=== PATIENT | female | born 1995 | race Hispanic/Latino ===

== ENCOUNTER 2019-08-12 19:29 | Emergency (ER) | payer OTHER ==
[2019-08-13 11:59] LABS: SARS-CoV-2 MS2 Positive; SARS-CoV-2 N Gene Negative; SARS-CoV-2 S Gene Negative; SARS-CoV-2 orf1ab Negative
== END 2019-08-12 20:15 | disposition home or self-care (01) ==
LOC: ERS 19:29
DX: J02.9 Acute pharyngitis, unspecified (principal); Z20.828 Contact with and (suspected) exposure to other viral communicable diseases
CPT/HCPCS: 87635; 99283; U0003

== ENCOUNTER 2019-11-04 13:50 | Inpatient (IN) | payer OTHER ==
[2019-11-04] MEDS ORDERED: hydrALAZINE 20 MG/ML VIAL SLOW IVP PRN (14:36)
[2019-11-04 15:02] LABS: #Eosinphils 0.1 thou/uL (0.0-0.7); #Lymphocytes 1.1 thou/uL (1.20-3.40); #Monocytes 0.4 thou/uL (0.11-0.59); #Neutrophils 7.5 thou/uL (1.40-6.50); %Basophils 0.1 % (0.0-1.0); %Eosinophils 0.6 % (0.0-10.0); %Lymphocytes 12.5 % (21.0-51.0); %Monocytes 3.8 % (0.0-10.0); %Neutrophils 82.9 % (42.0-75.0); Hemoglobin 10.1 g/dL (12.0-16.0); Mean Corpuscular HGB CONC 33.7 g/dL (32.0-36.0); Mean Corpuscular Hemoglobin 28.5 pg (27.0-31.0); Mean Corpuscular Volume 84.4 fL (78.0-98.0); Platelet Count 162 thou/uL (130-400); RBC Distribution Width 13.3 % (11.5-14.5); Red Blood Cell (RBC) Count 3.55 mill/uL (4.20-5.40)
--- NOTE | 2019-11-04 15:12 | PDOC.FPROB ---
FMR OB H&P: HPI - History of Present Illness Chief Complaint: Elevated Blood Pressure History of Present Illness: Pt is a 24 yo @ 39.4 wks by LMP c/w 15.4 wk US (ALE: 11/06/2019) who has a hx of anemia and GERD in who presents from [facility] after she was found to have 2+ protein on dip stick and elevated blood pressure with a systolic of 143. She says she was supposed to have a phone visit; however, she wanted to come in and see how dilated she was. They checked her and found her to be 2/50/- 1 with anterior soft cervix. She says she would like to wait till she is induced , but she she just wants to do whatever is best for the baby. She denies any headache, vision changes, loss of fluid, or vaginal bleeding. She says baby has been moving around well and she has some swelling in her feet, but it resolves with elevation. [facility] H&P: Current - Care : 2 Para: 1001 Gestational age: 39.4 wks Due date: 11/06/2019 Dating Criteria: LMP c/w 15.4 wk US - OB Labs Blood type: A RH: positive Antibody Screen: negative HIV: negative RPR: negative HepBsAg: negative Rubella: immune Gonorrhea: negative Chlamydia: negative Pap Smear: 05/27/2019 NILM 3 hour GTT: 2H F: 84, 1H: 116, 2H: 75 A1c: 5.5% GBS: negative H&H: 9.9/29.0 Platelets: 227 Additional labs: Hep C: neg, TSH: 0.257 FMR OB H&P: History - Past Medical History PMH: Obesity - OB History OB History: Hx of Chlamydia with treatment x2 & MANNY: 07/21 & 08/16, Obesity, Low TSH, GERD, Yeast Vaginitis treated, 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 - Family History Family History: Mother: DM Last baby did not need lights. FMR OB H&P: Medications - Current Home Medications: Medication Instructions Recorded Confirmed Type Esomeprazole Magnesium [NexIUM] 20 mg PO DAILY 12/21/15 12/22/15 History Comb No.42/Folic Acid 1 tablet PO DAILY 12/21/15 12/22/15 History [Prena1 Chewable Tablet] Allergies/Adverse Reactions: Allergies Allergy/AdvReac Type Severity Reaction Status Date / Time No Known Allergies Allergy Verified 12/22/15 22:56 FMR OB H&P: ROS - Review of Systems General: denies: fever/chills Eyes: denies: vision changes ENT: denies: nasal congestion, sore throat Cardiovascular: reports: edema. denies: chest pain Respiratory: denies: shortness of breath Gastrointestinal: denies: abdominal pain, nausea, vomiting Genitourinary (Female): denies: vaginal discharge, vaginal bleeding Musculoskeletal: denies: pain, arthritis/arthralgias Neurologic: denies: numbness, weakness Integumentary: denies: rash FMR OB H&P: Vital Signs - Maternal Vital signs: HR: 84-106 BP: 121/77 T: 97.7 - Heart Tones Baseline: 140 Variability: moderate Acceleration: present Deceleration: absent Category: category 1 [place] contractions every: very spaced out FMR OB H&P: Physical Exam - Physical Exam General: NAD, awake, alert and oriented HEENT: normocephalic and atraumatic, EOMI, conjunctiva clear Heart: RRR, normal S1/S2, no murmurs/rubs/gallops, pulses present, no edema General: CTAB, no respiratory distress, good air movement, no rales/rhonchi, no wheezing, no retractions Abdomen: soft, gravid, non-tender, bowel sound present Musculoskeletal: pulses present, FROM in all four extremities Neurological: sensation to pain,touch and proprioception grossly normal, no focal deficit Skin: no rash Lymphatic: no unusual bruising or bleeding, no purpura, no petechia FMR OB H&P: Results - Labs Lab results: Laboratory Results - last 24 hr 11/04/19 14:54 WBC 9.0 RBC 3.55 L Hgb 10.1 L Hct 30.0 L MCV 84.4 MCH 28.5 MCHC 33.7 RDW 13.3 Plt Count 162 MPV 11.0 H Neutrophils % 82.9 H Lymphocytes % 12.5 L Monocytes % 3.8 Eosinophils % 0.6 Basophils % 0.1 Neutrophils # 7.5 H Lymphocytes # 1.1 L Monocytes # 0.4 Eosinophils # 0.1 Basophils # 0.0 FMR OB H&P: A/P - Problem List (1) Elevated blood pressure affecting in third trimester, antepartum Current Visit: Yes Status: Acute Code(s): O16.3 - UNSPECIFIED MATERNAL HYPERTENSION, THIRD TRIMESTER (2) Proteinuria affecting in third trimester Current Visit: Yes Status: Acute Code(s): O12.13 - GESTATIONAL PROTEINURIA, THIRD TRIMESTER (3) Current Visit: Yes Status: Acute Qualifiers: Weeks of gestation: 39 weeks Qualified Code(s): Z3A.39 - 39 weeks gestation of (4) History of chlamydia infection Current Visit: Yes Status: Acute Code(s): Z86.19 - PERSONAL HISTORY OF OTHER INFECTIOUS AND PARASITIC DISEASES (5) Obesity Current Visit: Yes Status: Acute Code(s): E66.9 - OBESITY, UNSPECIFIED (6) GERD (gastroesophageal reflux disease) Current Visit: Yes Status: Acute Code(s): K21.9 - GASTRO-ESOPHAGEAL REFLUX DISEASE WITHOUT ESOPHAGITIS (7) Low TSH level Current Visit: Yes Status: Acute Code(s): R79.89 - OTHER SPECIFIED ABNORMAL FINDINGS OF BLOOD CHEMISTRY (8) Anemia affecting Current Visit: Yes Status: Acute Code(s): O99.019 - ANEMIA COMPLICATING , UNSPECIFIED TRIMESTER Disposition: Pt is a 24 yo @ 39.4 wks by LMP c/w 15.4 wk US (ALE: 11/06/2019) who presents for Pre-Eclampsia rule out due to elevated bp and proteinuria. 1. Pre-Eclampsia Rule-Out 2/2 Elevated blood pressure & Proteinuria sBP: 143, Protein: 2+ -Checking CBC, CMP, Urine Pro/Cre Ratio -Serial Blood Pressures - Monitoring 2. sIUP ALE: 11/06/2019 -GBS: Negative -PNC on 11/03 check /-1, soft & anterior 3.Hx of Chlamydia -Treatment x2 -MANNY: 07/21 & 08/16 4. Obesity -Glucose Tolerance test was normal 5. Low TSH TSH: 0.257 -Low in previous 6. GERD -Currently taking Famotidine 7. Yeast Vaginitis -Treated 8. Anemia of H&H: 9.9/29.0 -Currently taking FeSu 325 mg Dispo: Just got results back CBC & CMP were normal, but Urine Protein/ Creatinine 0.4 g and she had a sbp of 153. We will admit and induce for Pre-E without severe features. Discussion: Date/Time: 11/04/19 3075 This H&P was discussed with [] and [] who agree with the above documentation and plan.
[2019-11-04 15:26] LABS: ALT (SGPT) 7 U/L (8-55); AST (SGOT) 12 U/L (5-34); Albumin 3.3 g/dL (3.5-5.0); Alkaline Phosphatase 153 U/L (40-110); Anion Gap 13 mmol/L (10-20); BUN (Urea Nitrogen) 10 mg/dL (7.0-18.7); Bilirubin, Total 0.4 mg/dL (0.2-1.2); Calc. Creatinine Clearance 0 mL/min (70-130); Calcium 8.4 mg/dL (7.8-10.44); Carbon Dioxide 19 mmol/L (22-29); Chloride 106 mmol/L (98-107); Estimated GFR-MDRD Greater than 90; Globulin 3.2 g/dL (2.4-3.5); Glucose 104 mg/dL (70-105); Protein, Total 6.5 g/dL (6.0-8.3); Sodium 134 mmol/L (136-145)
[2019-11-04 17:24] LABS: Creatinine, Urine 170.48 mg/dL (47-110)
[2019-11-04] MEDS ORDERED: Butorphanol Tartrate 1 MG/ML VIAL SLOW IVP PRN (17:38)
[2019-11-04] MEDS ORDERED: Ibuprofen 800 MG TAB PO PRN (17:38)
[2019-11-04] MEDS ORDERED: Carboprost 250 MCG/ML AMP IM PRN (17:38)
[2019-11-04] MEDS ORDERED: Ondansetron PF 4 MG/2 ML Vial IVP PRN (17:38)
[2019-11-04] MEDS ORDERED: Acetaminophen 500 MG TAB PO PRN (17:38)
[2019-11-04] MEDS ORDERED: Lidocaine 1% (PF) 30 ML VIAL SC PRN (17:38)
[2019-11-04] MEDS ORDERED: Docusate 100 MG CAP PO PRN (17:38)
[2019-11-04] MEDS ORDERED: Methylergonovine 0.2 MG/ML VIAL IM PRN (17:38)
[2019-11-04] MEDS ORDERED: Promethazine HCl 25 MG/ML VIAL IM PRN (17:38)
[2019-11-04] MEDS ORDERED: Misoprostol 200 MCG TAB PR PRN (17:38)
[2019-11-04] MEDS ORDERED: NS w/ Oxytocin 10 units 500 ML IV SCH (17:45)
[2019-11-04 18:48] VITALS: BMI 35.4
--- NOTE | 2019-11-04 19:24 | PDOC.OBLPN ---
FMR OB Labor PN: Subj - Interval History Hospital Day: 1 Chief Complaint: mIOL Interval History: Not feeling ctx, elevated BP, no AGRAWAL, vision changes, abd pain , or swelling FMR OB Labor PN: Obj - Maternal Vital signs: BP 153/83 FMR OB Labor PN: Exam - Physical Exam General: NAD, awake, alert and oriented HEENT: grossly normal vision, grossly normal hearing General: no respiratory distress Abdomen: soft, gravid Musculoskeletal: pulses present Neurological: no clonus Deviation from normal: no active lesions, scarring suggestive of hidradenitis Psychiatric: intact recent and remote memory, good judgement and insight, normal mood and affect - Pelvic Exam Vulva: no lesions, no discharge, no blood SVE: /-2 [place] score: 7 Membranes: intact Presentation: cephalic FMR OB Labor PN: Data - Labs Lab results: Laboratory Results - last 24 hr 11/04/19 11/04/19 11/04/19 14:54 14:54 15:30 WBC 9.0 RBC 3.55 L Hgb 10.1 L Hct 30.0 L MCV 84.4 MCH 28.5 MCHC 33.7 RDW 13.3 Plt Count 162 MPV 11.0 H Neutrophils % 82.9 H Lymphocytes % 12.5 L Monocytes % 3.8 Eosinophils % 0.6 Basophils % 0.1 Neutrophils # 7.5 H Lymphocytes # 1.1 L Monocytes # 0.4 Eosinophils # 0.1 Basophils # 0.0 Sodium 134 L Potassium 4.0 Chloride 106 Carbon Dioxide 19 L Anion Gap 13 BUN 10 Creatinine 0.67 Estimated GFR (MDRD) Greater than 90 Glucose 104 Calcium 8.4 Total Bilirubin 0.4 AST 12 ALT 7 L Alkaline Phosphatase 153 H Serum Total Protein 6.5 Albumin 3.3 L Globulin 3.2 Albumin/Globulin Ratio 1.0 L U Random Total Protein 64 H Urine Creatinine 170.48 H - Imaging Imaging: Bedside sono confirmed cephalic presentation FMR OB Labor PN: A/P Disposition: mIOL Induced for pre-eclampsia without severe features. - SVE /-2/mid/soft @ 1715 - [place] 7 - Will start pitocin - Recheck in 4 hours or sooner if clinical changes Pre-eclampsia without severe features - continue BP monitoring and watch for development of severe features - PRN hydralazine Possible hidradenitis suppurativa - No active lesions on exam today - chlorhexidine prep with each cervical check Discussion: Date/Time: 11/04/191922 This H&P was discussed with Dr. Baca and Dr. Faulkner who agree with the above documentation and plan. Addendum - Attending - Attending Attestation Date/Time: 11/04/192114 I personally evaluated the patient and discussed the management with Dr. Turcios I agree with the History, Examination, Assessment and Plan documented above with any addition or exceptions noted below. 3 cm/70/-2, soft, anterior. Induction options discussed. Questions answered. Patient would like to start pitocin. FHR reactive. No decels. No contractions. GBS negative. COVID swab pending. ABrayMD
[2019-11-04 19:48] LABS: HBSAg Index 0.14 S/CO (0-0.99); Hep B Surf Ag Non-Reactive S/CO (NonReactive); Syphilis Antibody Nonreactive (Nonreactive); Syphilis Antibody Index 0.03 S/CO (<1.00 Non-Reactive)
[2019-11-04] MEDS: NS w/ Oxytocin 10 units 500 ML IV SCH (19:55)
[2019-11-04] MEDS: Misoprostol 100 MCG TAB VAG SCH (21:01)
[2019-11-04] MEDS: Lactated Ringer's 1,000 ML IV SCH (22:00)
--- NOTE | 2019-11-04 22:43 | PDOC.BPN ---
- Brief Progress Note Encounter Date: 11/04/19 Encounter Time: 22:30 Called nurse to discuss strip review. Pitocin recently increased from 6 to 8. Patient feeling some ctx, occurring q3-6min. Category I strip at this time; some minimal variability earlier and pitocin was kept at 6 instead of increasing for approximately 1 hour.
--- NOTE | 2019-11-05 | PDOC.OBLPN ---
FMR OB Labor PN: Subj - Interval History Hospital Day: 1 Chief Complaint: mIOL Interval History: feeling some ctx, no AGRAWAL, vision changes, abd pain, edema FMR OB Labor PN: Obj - Maternal Vital signs: BP 180/91, repeat 149/100 FMR OB Labor PN: Exam - Physical Exam General: NAD, awake, alert and oriented HEENT: grossly normal vision, grossly normal hearing Heart: no edema General: no respiratory distress Abdomen: gravid Psychiatric: intact recent and remote memory, good judgement and insight, normal mood and affect - Pelvic Exam SVE: /-1 Membranes: intact Presentation: cephalic FMR OB Labor PN: Data - Labs Lab results: Laboratory Results - last 24 hr 11/04/19 11/04/19 11/04/19 14:54 14:54 15:30 WBC 9.0 RBC 3.55 L Hgb 10.1 L Hct 30.0 L MCV 84.4 MCH 28.5 MCHC 33.7 RDW 13.3 Plt Count 162 MPV 11.0 H Neutrophils % 82.9 H Lymphocytes % 12.5 L Monocytes % 3.8 Eosinophils % 0.6 Basophils % 0.1 Neutrophils # 7.5 H Lymphocytes # 1.1 L Monocytes # 0.4 Eosinophils # 0.1 Basophils # 0.0 Sodium 134 L Potassium 4.0 Chloride 106 Carbon Dioxide 19 L Anion Gap 13 BUN 10 Creatinine 0.67 Estimated GFR (MDRD) Greater than 90 Glucose 104 Calcium 8.4 Total Bilirubin 0.4 AST 12 ALT 7 L Alkaline Phosphatase 153 H Serum Total Protein 6.5 Albumin 3.3 L Globulin 3.2 Albumin/Globulin Ratio 1.0 L U Random Total Protein 64 H Urine Creatinine 170.48 H Syphilis IgG/IgM Ab Hep Bs Antigen Blood Type Antibody Screen 11/04/19 11/04/19 11/04/19 18:40 18:40 18:40 WBC RBC Hgb Hct MCV MCH MCHC RDW Plt Count MPV Neutrophils % Lymphocytes % Monocytes % Eosinophils % Basophils % Neutrophils # Lymphocytes # Monocytes # Eosinophils # Basophils # Sodium Potassium Chloride Carbon Dioxide Anion Gap BUN Creatinine Estimated GFR (MDRD) Glucose Calcium Total Bilirubin AST ALT Alkaline Phosphatase Serum Total Protein Albumin Globulin Albumin/Globulin Ratio U Random Total Protein Urine Creatinine Syphilis IgG/IgM Ab Nonreactive Hep Bs Antigen Non-Reactive Blood Type A POSITIVE Antibody Screen NEGATIVE FMR OB Labor PN: A/P Disposition: mIOL Induced for pre-eclampsia without severe features. - on pitocin - SVE 2344 380/-1 - Recheck in 4 hours or sooner if clinical changes Pre-eclampsia without severe features - pressures >160/100 noted - started on Mg - given PRN hydralazine and pressures improved - continue with PRN hydralazine Possible hidradenitis suppurativa - No active lesions on exam today - chlorhexidine prep with each cervical check Discussion: Date/Time: 11/04/192358 This H&P was discussed with Dr. Baca and Dr. Faulkner who agree with the above documentation and plan. Addendum - Attending - Attending Attestation Date/Time: 11/04/192349 I personally evaluated the patient and discussed the management with Dr. Turcios and Dr. Baca I agree with the History, Examination, Assessment and Plan documented above with any addition or exceptions noted below. Now with 2 severe BP. Remains asymptomatic. Treat BP and start mag. Now preE with severe features. Monitor closely. Gina
[2019-11-05] MEDS ORDERED: Calcium Gluc 4.6 MEQ/10 ML (100 MG/ML) SLOW IVP PRN (00:03)
[2019-11-05] MEDS ORDERED: Magnesium Sulfate 20 GM/WATER 500 ML BAG IVPB SCH (00:15)
[2019-11-05] MEDS: Magnesium Sulfate 20 gm/500 ml 20 GM/500 ML BAG IVPB SCH ×3 (00:18→18:24)
[2019-11-05] MEDS: Misoprostol 100 MCG TAB VAG SCH (02:16)
--- NOTE | 2019-11-05 03:20 | PDOC.LDPN ---
Labor & Delivery Progress Note - Subjective Subjective: comfortable, no concerns - Objective Vital signs reviewed and normal: yes General: NAD, resting SVE: -: mIOL Induced for pre-eclampsia without severe features. - @ 0315 - pitocin increased from 10 to 12 - requests epidural at this time - plan to AROM after epidural placed Pre-eclampsia without severe features - no severe range pressures since starting Mg; one elevated pressure immediately following cervical check - PRN hydralazine for > 160/110 - urine output >30 cc/h - denies AGRAWAL, vision changes, CP, palpitations, abd pain, edema, SOB - reflexes 3+ Possible hidradenitis suppurativa - No active lesions on exam today - chlorhexidine prep with each cervical check Addendum - Attending - Attending Attestation Date/Time: 11/05/19 2037 I personally evaluated the patient and discussed the management with Dr. Turcios I agree with the History, Examination, Assessment and Plan documented above with any addition or exceptions noted below. Largely unchanged. However, contractions now more painful. Requesting epidural. Continue pitocin per protocol. AROM after epidural. Discussed with patient and agrees. Gina
[2019-11-05] MEDS ORDERED: Fentanyl 4 mcg/Bup 0.1% Cadd 100 ML ONE (03:50)
[2019-11-05] MEDS ORDERED: diphenhydrAMINE 50 MG/ML VIAL IVP PRN (04:44)
[2019-11-05] MEDS ORDERED: Naloxone HCl 0.4 mg/ml Vial IVP PRN ×2 (04:44)
[2019-11-05] MEDS ORDERED: EPHEDRINE 25 MG/5 ML SYRINGE SLOW IVP PRN (04:44)
[2019-11-05] MEDS ORDERED: Ondansetron PF 4 MG/2 ML Vial IVP PRN ×2 (04:44→21:28)
[2019-11-05] MEDS ORDERED: Promethazine HCl 25 MG/ML VIAL IM PRN ×2 (04:44→21:28)
[2019-11-05] MEDS ORDERED: Acetaminophen 325 MG TAB PO PRN (04:44)
[2019-11-05] MEDS ORDERED: Lactated Ringer's 500 ML IV PRN (04:44)
[2019-11-05] MEDS ORDERED: Fentanyl 4 mcg/Bupivacaine 0.1% Cassette 100 ML EPIDURAL SCH (04:45)
[2019-11-05] MEDS ORDERED: Communication Order-Pharmacy FS SCH (04:45)
--- NOTE | 2019-11-05 05:33 | PDOC.LDPN ---
Labor & Delivery Progress Note - Subjective Subjective: comfortable - Objective Vital signs reviewed and normal: yes General: NAD Uterine fundus: non tender SVE: 5/80/-1 FHT: category 1 AROM: clear fluid -: mIOL Induced for pre-eclampsia without severe features now with severe features. - AROM s/p epidural, clear fluid - SVE 5/80/-1 after AROM Pre-eclampsia with severe features - no additional severe range pressures - PRN hydralazine for > 160/110 - urine output >30 cc/h - denies AGRAWAL, vision changes, CP, palpitations, abd pain, edema, SOB - reflexes 2+ Possible hidradenitis suppurativa - No active lesions on exam today - chlorhexidine prep with each cervical check Addendum - Attending - Attending Attestation Date/Time: 11/05/19 1997 I personally evaluated the patient and discussed the management with Dr. Patricio I agree with the History, Examination, Assessment and Plan documented above with any addition or exceptions noted below. Now 5 cm and AROM'ed. Epidural in place and working well. Remains asymptomatic. No further severe range BP. No mag tox symptoms. ABrayMD
--- NOTE | 2019-11-05 07:29 | PDOC.LDPN ---
Labor & Delivery Progress Note - Subjective Subjective: comfortable, no concerns - Objective Vital signs reviewed and normal: yes General: NAD, resting Uterine fundus: non tender SVE: /.1 Dilation: 6 Effacement: 90% Station: -1 FHT: category 1 [place] contractions every: 3-4 min Plan: continue plan of care, pitocin for augmentation -: mIOL Induced for pre-eclampsia without severe features. - SVE /-1 - cat 1 tracing Pre-eclampsia without severe features - no additional severe range pressures - PRN hydralazine for > 160/110 - urine output >30 cc/h - denies AGRAWAL, vision changes, CP, palpitations, abd pain, edema, SOB - reflexes 2+ Possible hidradenitis suppurativa - No active lesions on exam today - chlorhexidine prep with each cervical check
--- NOTE | 2019-11-05 10:09 | PDOC.LDPN ---
Labor & Delivery Progress Note - Subjective Subjective: comfortable, vaginal pressure - Objective Vital signs reviewed and normal: yes General: NAD Uterine fundus: non tender SVE: 9/100/0 Dilation: 9 Effacement: 100% Station: 0 FHT: category 1 [place] contractions every: 3-4 min Plan: continue plan of care, pitocin for augmentation -: mIOL Induced for pre-eclampsia without severe features. - SVE 9/100/0 @ 9:50 - cat 1 tracing Pre-eclampsia without severe features - no additional severe range pressures - PRN hydralazine for > 160/110 - urine output >30 cc/h - denies AGRAWAL, vision changes, CP, palpitations, abd pain, edema, SOB - reflexes 2+ Possible hidradenitis suppurativa - No active lesions on exam today - chlorhexidine prep with each cervical check
[2019-11-05] MEDS ORDERED: Misoprostol 200 MCG TAB ONE (11:43)
[2019-11-05] MEDS ORDERED: Tranexamic Acid 1,000 MG/10 ML VIAL ONE (11:44)
[2019-11-05] MEDS: NS / Oxytocin 40 units/1000ml 1,000 ML IV PRN ×2 (11:56→17:11)
[2019-11-05] MEDS ORDERED: Tranexamic Acid 1,000 MG in Sodium Chloride 0.9% 250 ML 250 ML IVPB SCH (12:00)
[2019-11-05 12:30] LABS: SARS-CoV-2 MS2 Positive; SARS-CoV-2 N Gene Negative; SARS-CoV-2 S Gene Negative; SARS-CoV-2 by NAA Not Detected (NotDetected); SARS-CoV-2 orf1ab Negative
--- NOTE | 2019-11-05 12:46 | PDOC.OPDEL ---
OB Operative/Delivery Note Delivery Dr/Surgeon: Emelia/Darcie Assist: [email or web address] Pre-Delivery Diagnosis: medically indicated induction Procedure/Post Delivery Dx: spontaneous vaginal delivery Weeks gestation: 39 Anesthesia: epidural - Findings A Sex: female - 1 min: 8 - 5 min: 9 - Additional Findings/Plan Placenta delivered: spontaneous Repaired Obstetrical Laceration: 2nd degree Estimated blood loss: 315mL Compilations/Other Findings: Delivering Physician: Emelia Attending: Darcie Procedure: Spontaneous Vaginal Delivery Anesthesia: epidural, Local for Repair EBL: 315 ml Pre-op Diagnosis: 1. Term intrauterine in labor 2. Hx of preeclampsia with sever features, hx of chlamydia (TOCx2), hx of yeast vaginitis (treated), anemia of Post-op Diagnosis: 1. Term intrauterine , delivered 2. same as above Indications: A 24y/o female presents to L&D for induction due to pre- eclampsia. Delivery Note: This is 24yo F @ 39.4 wks who delivered a viable F at 11:27 on 11/04. Following an uneventful antepartum course, a vigorous female was delivered over an intact perineum in the occipitoanterior position. Anterior Shoulder and then remainder of the body delivered. No nuchal cord. The head was held down and mouth and nares were bulb suctioned. Cord clamped and cut and cord blood collected. Placenta delivered intact with a 3 vessel cord noted. Fundal massage was performed and brisk bleeding was noted. Patient received cytotec [place] and TXA. After additional massaging fundus was found to be firm. The cervix and vagina were inspected and a 2nd degree perineal laceration noted and repaired with 3-0 vicryl in the usual fashion with good approximation and hemostasis after a local anesthetic lidocaine was injected at site. Infant went to nursery in good condition for routine care. Apgars were 8/9 at 1 & 5 minutes, respectively. Patient tolerated delivery well and went to after routine recovery/care Post delivery plan: routine recovery (Mg for 24hours post delivery due to pre- eclampsia) Addendum - Attending - Attending Attestation Date/Time: 11/05/19 1342 I was present, assisted, and supervised the of a viable female infant over an intact perineum. Apgars 8/9. Placenta delivered spontaneously and intact. 3V cord. Small 2* perineal lac repaired with 3-0 vicryl in usual fashion. Good hemostasis. Mild uterine atony noted treated with bimanual massage, TXA and cytotec. [id number]. Residents: Emelia. Infant and mother in stable condition.
[2019-11-05] MEDS ORDERED: Misoprostol 200 MCG TAB PR PRN (14:00)
[2019-11-05] MEDS ORDERED: Misoprostol 200 MCG TAB PR SCH (14:00)
[2019-11-05] MEDS ORDERED: Misoprostol 100 MCG TAB PR SCH (14:00)
--- NOTE | 2019-11-05 15:43 | PDOC.BPN ---
- Brief Progress Note Encounter Date: 11/05/19 Encounter Time: 15:35 S: Patient doing well , received magnesium for Pre-E with severe range pressures. Tolerating magnesium and no acute events. No symptoms of mag toxicity noted. Denies fevers, chills, nausea, vomiting, SOB, CP, swelling or edema. O:BP 140s / 86-90 PE: Patient is alert and talkative. RRR, lungs clear to auscultation. No lower extremity edema noted bilaterally. DTR 2+ bilaterally. A/P: 1. : pre-E with severe range pressures - continue routine care, next mag check Q4 hr 7:35PM - monitor vital signs, monitor signs of mag toxicity - symptomatic management for pain control [place]ts, MS4 I, Kevin Malik - PGY1, agree with this assessment and plan.
--- NOTE | 2019-11-05 20:39 | PDOC.BPN ---
<Theresa Turcios - Last Filed: 11/05/19 20:22> - Brief Progress Note Encounter Date: 11/05/19 Encounter Time: 07:30 S: Reporting some blurry vision, improved with blinking a few times. No changes in visual acuity. No floaters. Has been wearing contacts for a prolonged period and thinks this may be related. Reports fatigue. No AGRAWAL, CP, palpitations, abdominal pain, edema. O: BP 160/64, repeat 154/72. Urine output 275, 45, 85 over the past 3 hours. Appears fatigued. Heart RRR, no murmurs. No abd tenderness. No edema on exam. Reflexes 2+, no clonus. A: Borderline blood pressure, low threshold for escalating treatment. P: Continue monitoring BP, UOP, sx closely. Tx for BP > 160/110. Consider lasix if UOP not improving to >200cc/hr. <Sofia Faulkner - Last Filed: 11/05/19 22:58> Addendum - Attending - Attending Attestation Date/Time: 11/05/192053 I personally evaluated the patient and discussed the management with Dr. Turcios I agree with the History, Examination, Assessment and Plan documented above with any addition or exceptions noted below. blurry vision likely related to contact lenses. Will continue to monitor closely. Borderline BPs. Diuresis decreasing. Need to make sure patient has at least diuresed over 4Ls today. Concern with increasing BP and decreasing UOP that possible continued dz state. Will continue mag as needed. Add lasix if not continuing to diuresis well. No s/sx of mag tox. Pitocin off so no antidiurectic effect. ABrayMD
[2019-11-05] MEDS ORDERED: hydrALAZINE 20 MG/ML VIAL SLOW IVP PRN (21:28)
[2019-11-05] MEDS ORDERED: Milk Of Magnesia 30 ML UDCUP PO PRN (21:28)
[2019-11-05] MEDS ORDERED: Bisacodyl 10 MG SUPP PR PRN (21:28)
[2019-11-05] MEDS ORDERED: Lanolin Ointment 7 GM TUBE TOP PRN (21:28)
[2019-11-05] MEDS ORDERED: NS / Oxytocin 40 units/1000ml 1,000 ML IV SCH (22:00)
[2019-11-05] MEDS ORDERED: Docusate Calcium (SURFAK) 240 MG CAP PO SCH (22:00)
[2019-11-05] MEDS ORDERED: Ferrous Sulfate 325 MG TAB PO SCH (22:00)
[2019-11-05] MEDS: Ibuprofen 800 MG TAB PO SCH (23:15)
[2019-11-05] MEDS ORDERED: Furosemide 20 MG/2 ML VIAL SLOW IVP SCH (23:59)
[2019-11-06] MEDS: Magnesium Sulfate 20 gm/500 ml 20 GM/500 ML BAG IVPB SCH (03:57)
--- NOTE | 2019-11-06 04:34 | PDOC.BPN ---
<Theresa Turcios - Last Filed: 11/06/19 04:31> - Brief Progress Note Encounter Date: 11/05/19 Encounter Time: 23:30 S: no AGRAWAL, vision changes, SOB, chest pain, abd pain, edema, palpitations O: resting comfortably, 2+ reflexes throughout, inadequate UOP (45-85 per hour) . no additional severe range pressures. A: decreased urine output 2/2 magnesium P: given 20 mg lasix to help diurese. continue magnesium. continue to monitor UOP and BP closely. <Sofia Faulkner - Last Filed: 11/06/19 05:21> - Brief Progress Note Decrease UOP no likely due to mag but pathology of preE. BP increased with decreasing UOP and possibly vision changes. Lasix added to assist with diuresis which has been effet -- 150, 200 per hour now. Consider repeat in 6 hours if needed to help continue diuresis. Gina
[2019-11-06] MEDS: Ibuprofen 800 MG TAB PO SCH ×3 (06:06→21:25)
--- NOTE | 2019-11-06 06:21 | PDOC.BPN ---
- Brief Progress Note Encounter Date: 11/06/19 Encounter Time: 03:30 S: Resting comfortably. Fatigue improved. No AGRAWAL, chest pain, SOB, palpitations, abd pain, edema. O: No elevated BP since last mag check. Reflexes 2+. UOP >100/hr. A: Improved UOP with lasix. BP wnl. P: Continue magnesium until 24 hr post-delivery, until 11:45 today. Continue to monitor BP. Continue q4hr mag checks, next due 07. Consider additional dose of lasix if increased UOP not maintained.
--- NOTE | 2019-11-06 06:44 | PDOC.PP ---
Post Progress Note Post Day #: 1 Subjective: Patient is doing well this morning. Baby has been feeding well. Pain is well managed with ibuprofen. Lochia is minimal and less than a period. She denies headache, SOB, or swelling. PO intake tolerated: yes Ambulation: yes Weight Weight 90.718 kg BPs 120s/80s BP 125/88, P 65, T 98.1 Urine output 463 - Physical Examination General: NAD Cardiovascular: no m/r/g, RRR Respiratory: clear to auscultation bilaterally, non-labored breathing Abdominal: + bowel sounds, lochia, no distention, appropriately TTP Fundus firm & at: midline, approximately 1in above umbilicus Extremities: negative homans (B) (2+ DTR bilaterally) Neurological: no gross focal deficits Psychiatric: A&Ox3, normal affect Result Diagrams: 11/04/19 14:54 11/04/19 14:54 Additional Labs: Post Labs Blood Type A POSITIVE 11/04/19 18:40 Hep Bs Antigen Non-Reactive S/CO (NonReactive) 11/04/19 18:40 - Assessment/Plan 24 yo G2 now P2 PPD 1 after . History of preeclampsia with severe features during labor and on magnesium. PPD 1 -appropriate pain, minimal lochia, and bonding well with baby Mg for preeclampsia -therapeutic level 5.2 -DTR 2+ bilaterally -UOP 463 -BPs 120s/80s -asymptomatic Continue magnesium until 24hrs post delivery which will be 11:30 on 11/05. Addendum - Attending - Attending Attestation Date/Time: 11/06/191938 I personally evaluated the patient and discussed the management with Dr. Malik I agree with the History, Examination, Assessment and Plan documented above with any addition or exceptions noted below - Patient without complaints. Afebrile VSS. A/P: 1) PPD#1 s/p - continue current care. 2) Pre- eclampsia with severe features- BP much improved; adequate urine output. Plan to d/c magnesium and transfer to .
[2019-11-06] MEDS: Lactated Ringer's 1,000 ML IV SCH ×3 (07:30→12:54)
[2019-11-06] MEDS ORDERED: Adacel (T-DAP) 0.5 ML SYRINGE IM ONE (09:00)
[2019-11-06] MEDS: Docusate Calcium (SURFAK) 240 MG CAP PO SCH ×2 (11:34→20:47)
[2019-11-06] MEDS: Prenatal Vitamin 1 TAB PO SCH (11:35)
[2019-11-06] MEDS: Misoprostol 100 MCG TAB VAG SCH ×2 (12:51→12:52)
[2019-11-06] MEDS: NS w/ Oxytocin 10 units 500 ML IV SCH (12:54)
[2019-11-07] MEDS: Ibuprofen 800 MG TAB PO SCH (05:30)
--- NOTE | 2019-11-07 06:38 | PDOC.PP ---
Post Progress Note Post Day #: 2 Subjective: Pati has no complaints this morning. Pain is appropriate, lochia is minimal. She is eating, voiding, and having flatus. She is and bonding with the baby. PO intake tolerated: yes Flatus: yes Ambulation: yes Vital Signs (12 hours) Temp Pulse Resp BP Pulse Ox 11/07/19 01:05 98.8 F 80 20 134/69 97 11/06/19 20:45 98.9 F 92 20 133/85 97 Weight Weight 90.718 kg - Physical Examination General: NAD Cardiovascular: no m/r/g, RRR Respiratory: clear to auscultation bilaterally, non-labored breathing Abdominal: + bowel sounds, lochia, no distention, appropriately TTP Neurological: no gross focal deficits Psychiatric: A&Ox3, normal affect Result Diagrams: 11/04/19 14:54 11/04/19 14:54 Additional Labs: Post Labs Blood Type A POSITIVE 11/04/19 18:40 Hep Bs Antigen Non-Reactive S/CO (NonReactive) 11/04/19 18:40 - Assessment/Plan 24 yo G2 now P2 PPD 2 after . History of preeclampsia with severe features during labor and received 24hours of magnesium post delivery. PPD 2 -appropriate pain, minimal lochia, and bonding well with baby Mg for preeclampsia -Received for 24hrs post delivery -BPs have been wnl -DTRs 2+ b/l -asymptomatic Discharge home today with baby. Will follow up with clinic in 2 weeks. Addendum - Attending - Attending Attestation Date/Time: 11/07/19 0736 I personally evaluated the patient and discussed the management with Dr. Malik I agree with the History, Examination, Assessment and Plan documented above with any addition or exceptions noted below - Patient without complaints. Ambulating/voiding. Afebrile VSS. A/P: 1) PPD#2 s/p - continue current care ; plan for d/c later today. 2) Pre-eclampsia with severe features- BP all below 140/90. D/C home later today and f/u @ [facility] in 2-3 days.
[2019-11-07 08:12] VITALS: BP 139/79; TEMP 98.4
[2019-11-07] MEDS: Docusate Calcium (SURFAK) 240 MG CAP PO SCH (09:40)
[2019-11-07] MEDS: Prenatal Vitamin 1 TAB PO SCH (09:40)
[2019-11-26] MEDS ORDERED: Ferrous Sulfate 325 MG TAB PO SCH (08:00)
== END 2019-11-07 13:30 | disposition home or self-care (01) | DRG 807 ==
LOC: L&D/OP 13:50 → L&D 18:19 → 3SE 11-06 12:38
PROVIDERS: ADMIT Family Medicine; ATTEND Family Medicine
PROC: 3E033VJ Introduction of Other Hormone into Peripheral Vein, Percutaneous Approach (ICD-10-PCS; 2019-11-04)
PROC: 10E0XZZ Delivery of Products of Conception, External Approach (ICD-10-PCS; principal; 2019-11-05)
PROC: 0KQM0ZZ Repair Perineum Muscle, Open Approach (ICD-10-PCS; 2019-11-05)
PROC: 10907ZC Drainage of Amniotic Fluid, Therapeutic from Products of Conception, Via Natural or Artificial Opening (ICD-10-PCS; 2019-11-05)
DX: O14.14 Severe pre-eclampsia complicating childbirth (principal); Z37.0 Single live birth; Z3A.39 39 weeks gestation of pregnancy; Z20.828 Contact with and (suspected) exposure to other viral communicable diseases; O99.214 Obesity complicating childbirth; E66.9 Obesity, unspecified; K21.9 Gastro-esophageal reflux disease without esophagitis; O99.62 Diseases of the digestive system complicating childbirth; O99.02 Anemia complicating childbirth; L73.2 Hidradenitis suppurativa; O99.72 Diseases of the skin and subcutaneous tissue complicating childbirth; D64.9 Anemia, unspecified; O62.2 Other uterine inertia; O70.1 Second degree perineal laceration during delivery; Z86.19 Personal history of other infectious and parasitic diseases; Z79.899 Other long term (current) drug therapy
CPT/HCPCS: 36415; 51702; 80053; 82570; 83735; 84156; 85025; 86780; 86850; 86900; 86901; 87340; 87635; 88307; 99285; J0360; J1940; J2001; J2405; J2590; J3475; U0003

== ENCOUNTER 2019-12-30 14:28 | Outpatient (CLI) | payer OTHER ==
--- NOTE | 2019-12-30 17:22 | ULT ---
THYROID ULTRASOUND: 12/30/19 INDICATIONS: Enlarged thyroid. Subclinical hypothyroidism. FINDINGS: Both lobes show homogeneous echotexture. Both lobes are upper normal but appear unremarkable. No thyr oid mass or nodule. Right lobe measurement: 5.3 x 1.5 x 2.0 cm. Left lobe measurement: 4.7 x 1.0 x 1.3 cm. IMPRESSION: Normal thyroid ultrasound exam. POS: [facility]
== END 2019-12-30 14:29 | disposition home or self-care (01) ==
LOC: BICULT 14:28
PROVIDERS: ATTEND Family Medicine
DX: E04.9 Nontoxic goiter, unspecified (principal); E05.90 Thyrotoxicosis, unspecified without thyrotoxic crisis or storm
CPT/HCPCS: 76536

== ENCOUNTER 2023-11-16 10:45 | Emergency (ER) | payer OTHER, SELFPAY ==
[2023-11-16 12:39] LABS: #Basophils 0.04 10x3/uL (0.0-0.2); %Basophils 0.4 % (0.0-1.0); %Eosinophils 1.8 % (0.0-10.0); %Monocytes 7.4 % (0.0-10.0); Hematocrit 39.7 % (36.0-47.0); Hemoglobin 13.3 g/dL (12.0-16.0); Mean Corpuscular HGB CONC 33.5 g/dL (32.0-36.0); Mean Corpuscular Hemoglobin 28.6 pg (27.0-31.0); Mean Corpuscular Volume 85.4 fL (78.0-98.0); Mean Platelet Volume 10.3 fL (7.4-10.4); Platelet Count 329 10x3/uL (130-400); RBC Distribution Width 13.2 % (11.5-14.5); Red Blood Cell (RBC) Count 4.65 mill/uL (4.20-5.40)
[2023-11-16 12:58] LABS: ALT (SGPT) 22 U/L (8-55); AST (SGOT) 16 U/L (5-34); Albumin 3.9 g/dL (3.5-5.0); Alkaline Phosphatase 70 U/L (40-110); Anion Gap 12 mmol/L (10-20); BUN (Urea Nitrogen) 12 mg/dL (7.0-18.7); Bilirubin, Total 0.4 mg/dL (0.2-1.2); Calc. Creatinine Clearance 0 mL/min (70-130); Calcium 9.2 mg/dL (7.8-10.44); Carbon Dioxide 23 mmol/L (22-29); Chloride 107 mmol/L (98-107); Estimated GFR 113; Globulin 4.4 g/dL (2.4-3.5); Glucose 89 mg/dL (70-105); Potassium 3.9 mmol/L (3.5-5.1); Protein, Total 8.3 g/dL (6.0-8.3); Sodium 138 mmol/L (136-145)
[2023-11-16 13:47] LABS: Bacteria/HPF None Seen HPF (None Seen); Bilirubin Negative (Negative); Blood, Urine Negative (Negative); CAUTI Indications for Culture Pelvic or flank pain; Clarity Clear (Clear); Glucose, Urine (Dipstick) Normal (Negative); Ketone, Urine Negative (Negative); Leukocyte Negative Leu/uL (Negative); Nitrite Negative (Negative); Protein, Urine (Dipstick) Negative (Neg-Trace); RBC/HPF 0-3 HPF (0-3); Specific Gravity, Urine 1.024 (1.002-1.036); Squamous Epithelial 0-3 HPF (0-3); Urobilinogen Normal mg/dL (Less than 2); WBC/HPF 0-3 HPF (0-3); pH, Urine 7.5 (5.0-9.0)
[2023-11-16 13:50] LABS: Pregnancy Test - Urine (BHCG) Negative (Negative); Pregu Control Background? CLEAR/WHITE (CLR/WHITE); Pregu Control Bar Appear? YES (CONTROL BAR); Specific Gravity 1.024 (1.002-1.036)
[2023-11-16 13:51] LABS: Urine Culture Reflex No No
[2023-11-16] MEDS ORDERED: Clindamycin/D5W 600 mg/50 ml Premix Bag ONE (14:01)
[2023-11-16 14:41] LABS: HBCM Index 0.14 S/CO (0-0.79); HBsAg Index 0.42 S/CO (0-0.99); HIV (1/2) Antibody/Antigen NONREACTIVE (NonReactive); HIV 1/2 INDEX 0.06 S/CO (<1.00); Hep A IgM AB NONREACTIVE (NonReactive); Hep A IgM S/CO 0.25 S/CO (0-0.79); Hep B Surf Ag NONREACTIVE S/CO (NonReactive); Hep C IgG Ab NONREACTIVE S/CO (NonReactive); Hep C Index 0.11 S/CO (0-0.79); Hepatitis B Core IgM Abs NONREACTIVE S/CO (NonReactive)
[2023-11-16] MEDS ORDERED: Clindamycin/D5W 900 MG in Premix 1 BAG IVPB SCH (15:30)
== END 2023-11-16 16:36 | disposition home or self-care (01) ==
LOC: ERS 10:45
DX: L02.211 Cutaneous abscess of abdominal wall (principal)
CPT/HCPCS: 36415; 76705; 80053; 80074; 81001; 81025; 83605; 85025; 86141; 87040; 87389; 96374; J3490